=== PATIENT | female | born 1945 | race Caucasian/White ===

== ENCOUNTER → 2016-10-22 | Outpatient (CLI) | payer MEDICARE, OTHER ==
[2016-10-22 08:39] LABS: BASOPHILS % (AUTO) 1 % (0-2); EOSINOPHILS # (AUTO) 0.3 10^3uL; EOSINOPHILS % (AUTO) 3 % (0-4); LYMPHOCYTES # (AUTO) 2.9 X10^3; MEAN CORPUSCULAR HEMOGLOBIN 28.3 PG (26.0-34.0); MEAN CORPUSCULAR HGB CONC 33.3 g/dL (31.0-37.0); MEAN CORPUSCULAR VOLUME 85 FL (80-100); MEAN PLATELET VOLUME 10.2 FL (6.0-9.5); MONOCYTES # (AUTO) 0.6 X10^3; MONOCYTES % (AUTO) 8 % (3-11); NEUTROPHILS # (AUTO) 4.3 X10^3; NEUTROPHILS % (AUTO) 53 % (51-67); PLATELET COUNT 192 10^3uL (150-450); WHITE BLOOD COUNT 8.17 10^3uL (4.0-11.0)
[2016-10-22 09:10] LABS: ALBUMIN 4.1 g/dL (3.4-5.0); ANION GAP 18.1 MEQ/L (3-15); CALCULATED IONIZED CALCIUM 3.8 mg/dL (3.8-4.6); TOTAL PROTEIN 7.9 g/dL (6.4-8.5)
== END ==
LOC: LAB 08:18
PROVIDERS: ATTEND Family Medicine
DX: R79.89 Other specified abnormal findings of blood chemistry (principal); E78.2 Mixed hyperlipidemia; D50.8 Other iron deficiency anemias; G72.0 Drug-induced myopathy; K71.2 Toxic liver disease with acute hepatitis; E13.65 Other specified diabetes mellitus with hyperglycemia; E83.42 Hypomagnesemia; E03.4 Atrophy of thyroid (acquired); M81.0 Age-related osteoporosis without current pathological fracture
CPT/HCPCS: 36415; 80053; 80061; 82306; 82550; 82977; 83036; 83735; 84436; 84443; 85025

== ENCOUNTER → 2016-11-05 | Outpatient (CLI) | payer MEDICARE, OTHER ==
[2016-11-05 08:47] LABS: BILIRUBIN,URINE Negative (Negative); CLARITY,URINE Cloudy; GLUCOSE, URINE (UA) Negative (Negative); LEUKOCYTE ESTERASE ,URINE 2+ (Negative); UROBILINOGEN,URINE 0.2 mg/dL (0.2-1.0)
[2016-11-05 08:53] LABS: URINE CENTRIFUGED VOLUME 12 mL
[2016-11-05 08:54] LABS: COLOR,URINE Yellow
--- NOTE | 2016-11-05 09:10 | Diagnostic Imaging Report ---
INDICATION: Hypertension. COMPARISON: 11/01/2015, 10/29/2014, 06/23/2013 2 views. FINDINGS: Surgical clips are seen in the right axilla. The cardiac silhouette size is normal with mild left ventricular contour. The genna are within normal limits. 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 There is no pleural lesion. Mild left lateral deviation of the proximal thoracic trachea is noted, probably related to right thyroid lobe enlargement or mass, which is stable from the comparison exams. No lung parenchymal lesion is identified. Mild wedging of a lower thoracic vertebra is present, unchanged. IMPRESSION: 1. No significant chest x-ray abnormality or change from the comparison examination. Dictated by: Dictated on workstation # [id number]
--- NOTE | 2016-11-05 10:33 | Diagnostic Imaging Report ---
INDICATION: Personal history of breast cancer. Bilateral digital mammography with computer-assisted detection is performed. Digital mammography with computer-assisted detection is performed. COMPARISONS: 11/01/2015, 10/29/2014, 06/23/2013. The breasts are composed predominantly of fat. Right breast: Mild architectural distortion is noted from the lumpectomy. There has been no change in the interval. Benign calcification is present. Left breast: Stable density pattern. Benign calcification is noted laterally. IMPRESSION: 1. Negative for malignancy. Followup in one year. ACR BI-RADS Category 2: Benign findings. Result letter will be mailed to the patient. Note: At least 10% of breast cancer is not imaged by mammography. Dictated by: Dictated on workstation # [id number]
== END ==
LOC: RAD 08:30
PROVIDERS: ATTEND Family Medicine
DX: C50.411 Malignant neoplasm of upper-outer quadrant of right female breast (principal); I10 Essential (primary) hypertension; N39.0 Urinary tract infection, site not specified; R82.99 Other abnormal findings in urine
CPT/HCPCS: 71020; 81003; 81015; 87088; 93005; G0204